=== PATIENT | male | born 1980 | race Caucasian/White ===

== ENCOUNTER 2019-08-12 14:01 | Emergency (ER) | payer BC ==
[2019-08-12] MEDS ORDERED: DIPH,PERTUS(ACELL)TETVAC-LF 0.5 ML VIAL IM ONE (14:17)
[2019-08-12] MEDS ORDERED: LIDOCAINE 1% INJ 10MG/ML (20 ML MDV) SQ STA (14:17)
[2019-08-12] MEDS ORDERED: CEPHALEXIN 500 MG CAP PO STA (14:17)
--- NOTE | 2019-08-12 14:29 | ED ---
General Adult HPI - General Chief complaint: Wound/Laceration Stated complaint: finger tip lac Time Seen by Provider: 08/12/19 14:13 Source: patient, RN notes reviewed, old records reviewed Mode of arrival: ambulatory Limitations: no limitations - History of Present Illness Initial comments: 39-year-old male patient no pertinent past medical history presents to ED for chief complaint of laceration to second digit of right hand. Patient was reportedly snowblowing, wearing gloves when he put his hand in a snowblower to dislodge material. Patient reports that he was wearing gloves however he did suffer laceration to the tip of his first finger. Denies any other pain or injury. Systemic: Pt denies fatigue, fever/chills, rash. Pt denies weakness, night sweats, weight loss. Neuro: Pt denies headache, visual disturbances, syncope or pre-syncope. HEENT: Pt denies ocular discharge or irritation, otalgia, rhinorrhea, pharyngitis or notable lymphadenopathy. Cardiopulmonary: Pt denies chest pain, SOB, heart palpitations, dyspnea on exertion. Abdominal/GI: Pt denies abdominal pain, n/v/d. : Pt denies dysuria, burning w/ urination, frequency/urgency. Denies new onset urinary or bowel incontinence. MSK: Pt denies myalgia, loss of strength or function in extremities. Neuro: Pt denies new onset weakness, paresthesias. - Related Data Previous Rx's Medication Instructions Recorded Cephalexin [Keflex] 500 mg PO Q6HR 10 Days #40 cap 08/12/19 Allergies Allergy/AdvReac Type Severity Reaction Status Date / Time No Known Allergies Allergy Verified 08/12/19 14:09 Review of Systems ROS Statement: Those systems with pertinent positive or pertinent negative responses have been documented in the HPI. ROS Other: All systems not noted in ROS Statement are negative. Past Medical History Past Medical History: No Reported History History of Any Multi-Drug Resistant Organisms: None Reported Additional Past Surgical History / Comment(s): wisdom teeth Past Psychological History: No Psychological Hx Reported Smoking Status: Never smoker Past Alcohol Use History: Occasional Past Drug Use History: None Reported General Exam - General Exam Comments Initial Comments: Constitutional: NAD, AOX3, Pt has pleasant affect. HEENT: NC/AT, trachea midline, neck supple, no lymphadenopathy. Posterior pharynx non erythematous, without exudates. External ears appear normal, without discharge. Mucous membranes moist. Eyes PERRLA, EOM intact. There is no scleral icterus. No pallor noted. Cardiopulmonary: RRR, no murmurs, rubs or gallops, no JVD noted. Lungs CTAB in anterior and posterior matamoros. No peripheral edema. Abdominal exam: Abdomen soft and non-distended. Abdomen non-tender to palpation in all 4 quadrants. Bowel sounds active in LLQ. No hepatosplenomegaly. No ecchymosis Neuro: CN II-XII grossly intact. No nuchal rigidity. No raccon eyes, no adkins sign, no hemotympanum. No cervical spinal tenderness. MSK: 2 cm stellate laceration distal pad of second digit of right hand. Vigorously irrigated, no bony or ligamentous involvement noted, no foreign body. Approximately with 5 simple interrupted sutures. Full active range of motion before and after suture placement. Sensation intact. Capillary refill less than 2 seconds. No posterior calf tenderness bilaterally, homans sign negative bilaterally. Posterior tibialis and radial pulse +2 bilaterally. Sensation intact in upper and lower extremities. Full active ROM in upper and lower extremities, 5/5 stregnth. Limitations: no limitations Course Vital Signs 08/12/19 14:09 Temperature 97.7 F Pulse Rate 57 L Respiratory 18 Rate Blood Pressure 113/79 O2 Sat by Pulse 99 Oximetry Procedures - Laceration Laceration #1 Consent Obtained: verbal consent Indication: laceration Site: hand (distal pad 2nd digit) Size (cm): 2 Description: stellate Depth: simple, single layer Anesthetic Used: lidocaine 1% Anesthesia Technique: local infiltration Amount (mls): 2 Pre-repair: wound explored, irrigated extensively, deep structures intact Type of Sutures: nylon Size of Sutures: 5-0 Number of Sutures: 5 Technique: simple, interrupted Patient Tolerated Procedure: well, no complications Medical Decision Making - Medical Decision Making 39-year-old male patient no pertinent past medical history presents to ED for chief complaint of laceration to second digit of right hand. Patient was reportedly snowblowing, wearing gloves when he put his hand in a snowblower to dislodge material. Patient reports that he was wearing gloves however he did suffer laceration to the tip of his first finger. Denies any other pain or injury. Patient also and are stable, afebrile. Physical exam displayed 2 cm laceration, approximate 5 simple interrupted sutures, there is irrigated. Plain film didn't display small chip fracture. Patient was initiated on Keflex. Patient placed in straight finger splint. Will be discharged to follow up with primary care provider and orthopedic consult tomorrow, return to ER physician worsens. Case discussed with Dr. Phelps. Disposition Clinical Impression: Laceration, Open fracture of tuft of distal phalanx of finger Disposition: HOME SELF-CARE Condition: Stable Instructions (If sedation given, give patient instructions): Finger Fracture (ED) Additional Instructions: Continue to take antibiotics as directed. Continue wear straight finger splint. Follow up with orthopedic consult tomorrow. Follow up with primary care consult 1-2 days. Return in 7-10 days for suture removal. Monitor for signs or symptoms of infection. Please return for suture removal: Hand: 7-10 days Face: 5 days Chest/abdomen: 12-14 days Extremities: 7-10 days Scalp: 7 days Eyebrow: 5-7 days Foot/sole: 12-14 days Please monitor for signs and symptoms of infection including: redness, warmth, drainage, discharge. Please return to ED if these signs or symptoms occur, new signs or symptoms develop or if condition worsens in anyway. Prescriptions: Cephalexin [Keflex] 500 mg PO Q6HR 10 Days #40 cap Is patient prescribed a controlled substance at d/c from ED?: No Referrals: Gaby Meza DO [Primary Care Provider] - 1-2 days Chip Wong PAC [PHYSICIAN SEM MANAGER] - 1-2 days
--- NOTE | 2019-08-12 14:42 | XR ---
Second digit right hand HISTORY: Trauma and pain 3 views of the second digit right hand There is a small ossific density distal to the top of the second digit of the right hand seen on fron nicole and oblique images. No evident dislocation. Soft tissue defect is suspected. Arthropathy changes noted incidentally. IMPRESSION: There may be a small chip fracture of the tuft of the second digit of the right hand.
[2019-08-12] MEDS ORDERED: CEPHALEXIN 500MG STARTER PACK 4 CAP BTL PO STA (15:16)
[2019-08-12 15:38] VITALS: BP 134/70; PULSE 89; RESP 16; TEMP 97.8
== END 2019-08-12 15:37 | disposition home or self-care (01) ==
LOC: EC 14:01
DX: S62.630A Displaced fracture of distal phalanx of right index finger, initial encounter for closed fracture (principal); S61.210A Laceration without foreign body of right index finger without damage to nail, initial encounter; W26.8XXA Contact with other sharp object(s), not elsewhere classified, initial encounter; Y93.54 Activity, bowling; Y92.39 Other specified sports and athletic area as the place of occurrence of the external cause
CPT/HCPCS: 73140; 90715; 99283; 12001; 90471; J2001